=== PATIENT | female | born 1950 | race Caucasian/White ===

== ENCOUNTER 2022-04-01 10:15 | Outpatient (RCR) | payer OTHER, SELFPAY | END 2022-06-11 14:55 | disposition home or self-care (01) | PROVIDERS: Visit Provider Orthopaedic Surgery | DX: R26.89 Other abnormalities of gait and mobility (principal); M17.11 Unilateral primary osteoarthritis, right knee; Z96.651 Presence of right artificial knee joint; Z51.89 Encounter for other specified aftercare | CPT/HCPCS: 97110; 97112; 97116; 97140 ==

== ENCOUNTER 2023-06-15 09:30 | Outpatient (RCR) | payer OTHER, SELFPAY | END 2023-06-15 12:29 | disposition home or self-care (01) | PROVIDERS: PCP Family Medicine; Visit Provider Orthopaedic Surgery | DX: M54.50 Low back pain, unspecified (principal); M70.62 Trochanteric bursitis, left hip; M70.61 Trochanteric bursitis, right hip; G89.29 Other chronic pain; M25.552 Pain in left hip; M25.551 Pain in right hip; R53.1 Weakness; Z51.89 Encounter for other specified aftercare | CPT/HCPCS: 97032; 97110; 97140; 97161 ==